=== PATIENT | male | born 1945 | race Caucasian/White ===

== ENCOUNTER 2019-07-21 08:12 | Emergency (ER) | payer MEDICARE ==
--- OUTSIDE RECORDS SUMMARY | 2019-07-21 08:19 | XMS REPORT | Summary of Care ---
:1945 Author Organization [facility] Address [address] [facility] [place] [address] Care Team Providers Name Role Phone Crescencio Lara Radha Primary Care Provider Reason for Visit Reason Comments Follow Up Right knee f/u. Patient states the injection worked great. Encounter Details Date Type Department Care Team Description 07/16/2019 Office Visit [facility] Francisco Nava, Primary osteoarthritis - [place] of right knee (Primary [address]) [place] [address] [place] [address] [phone] Allergies Active Allergy Reactions Severity Noted Date Comments No Known Allergies Other 06/25/2008 documented as of this encounter (statuses as of 07/19/2019) Medications Medication Sig Dispensed Refills Start Date End Date Status ibuprofen (ADVIL) 200 Take 800 mg by 0 Active MG Oral Tab mouth EVERY SIX HOURS NEEDED for Pain. Tadalafil 20 MG Oral Take 1 Tab by 12 Tab 5 07/26/2018 Active Tab mouth NEEDED (sex). documented as of this encounter (statuses as of 07/19/2019) Active Problems Problem Noted Date Erectile dysfunction due to arterial insufficiency 06/30/2017 Mixed hyperlipidemia 03/11/2016 Rotator cuff tear, right 07/18/2012 Tubular adenoma 11/13/2008 Overview: S/p polypectomy 2004, 2008 Osteoarthritis of knee 06/25/2008 Overview: S/p synvisc injection 2002-[facility]. documented as of this encounter (statuses as of 07/19/2019) Resolved Problems Problem Noted Date Resolved Date Shoulder pain 07/18/2012 07/25/2012 Overview: Right documented as of this encounter (statuses as of 07/19/2019) Immunizations Name Administration Dates Next Due Euflexxa (2ml) 11/07/2013 Euflexxa (4ml) 11/14/2013, 10/31/2013 Influenza (IM) Preservative Free 06/06/2012, 06/25/2008 PNEUMOCOCCAL POLYSACCHARIDE VACCINE 04/18/2012 Pneumococcal Conjugate(13 Valent) 03/11/2016 TDAP Vaccine 07/27/2015 ZOSTER (ZOSTAVAX) VACCINE 03/11/2016 documented as of this encounter Social History Tobacco Use Types Packs/Day Years Used Date Never Smoker Smokeless Tobacco: Never Used Alcohol Use Drinks/Week oz/Week Comments Yes 3-4 Glasses of wine 3.0 - 4.0 WINE DAILY Sex Assigned at Date Recorded Not on file Job Start Date Occupation Industry Not on file Not on file Not on file Travel History Travel Start Travel End No recent travel history available. documented as of this encounter Last Filed Vital Signs Vital Sign Reading Time Taken Comments Blood Pressure 129/76 07/16/2019 9:20 AM EDT Pulse 79 07/16/2019 9:20 AM EDT Temperature - - Respiratory Rate - - Oxygen Saturation - - Inhaled Oxygen Concentration - - Weight 83.9 kg (185 lb) 07/16/2019 9:20 AM EDT Height 177.8 cm (5' 10") 07/16/2019 9:20 AM EDT Body Mass Index 26.54 07/16/2019 9:20 AM EDT documented in this encounter Progress Notes Francisco Nava MD - 07/16/2019 9:15 AM EDT Name: Fadi Martinez : 1945 Date of Service: 07/16/2019 Chief Complaint Patient presents with Follow Up Right knee f/u. Patient states the injection worked great, however, it only worked two days. History of Present Illness: Fadi Martinez is a 73-y.o. male. The above is noted. Patient is in today for evaluation and follow-up of his right knee. Last seen in the office on 2018. At that time he had a Depo-Medrol injection performed previously on 2018. The patient has a diagnosis of degenerative joint disease involving his right knee. States that his knee is much less painful and is pleased with his pain relief at this time. Physical Examination: BP 129/76 | Pulse 79 | Ht 5' 10" (1.778 m) | Wt 185 lb (83.9 kg) | BMI 26.54 kg/m Developed well-nourished male in minimal discomfort at rest. Physical examination right knee: Reveals full extension, flexion 120 degrees. No varus valgus instability. Willem's test is negative at 25 to 30 degrees flexion. Neurovascularly he is intact. Patient walks with a minimally antalgic gait. Impression: DJD right knee Plan: Patient is doing well and the plan at this point is to follow-up on a as needed basis. All questions were answered. There are no Patient Instructions on file for this visit. Author: Francisco Nava MD 07/16/2019 09:46 documented in this encounter Plan of Treatment Health Maintenance Due Date Last Done Comments HIV SCREENING 1960 FALL RISK ASSESSMENT 2010 ZOSTER IMMUNIZATION SERIES 05/06/2016 03/11/2016 (2 of 3) MEDICARE ANNUAL WELLNESS 03/11/2017 03/11/2016, 03/11/2016 VISIT DEPRESSION SCREENING 04/13/2019 04/13/2018 COLONOSCOPY SCREENING 06/11/2019 06/11/2014, 01/12/2009, 12/17/2008 (Previously completed) LIPID DISORDER SCREENING 04/25/2022 04/25/2017, 03/15/2016, 05/08/2014, Additional history exists HEPATITIS C SCREENING Completed 05/08/2014 PNEUMOCOCCAL 65+YRS Completed 03/11/2016, 04/18/2012 HPV IMMUNIZATION SERIES Aged Out No longer eligible based on patient's age to complete this topic MENINGOCOCCAL VACCINE IMM Aged Out No longer eligible based on patient's age to complete this topic documented as of this encounter Implants Implanted Type Area Otr Flatbed Driver Device Shelf Model / Identifier Expiration Serial / Date Lot Pushlock 3.5mm - [id number] Right: ARTHREX [id number] / Implanted: Qty: 2 on 08/16/2012 at [facility] / [id number] [place] Rotator Cuff 5mm - [id number] Right: BIOMET [id number] / Implanted: Qty: 1 on 08/16/2012 at [facility] / [id number] [employer] Mini Quick [place] Plus - [id number] Right: Thumb DEPUY MTEK [id number] / Implanted: Qty: 1 on 06/29/2016 by Robert Cook MD at [facility] / [id number] [employer] Micro Quick [place] #4.0 - [id number] Right: Finger DEPUY MTEK [id number] / Implanted: Qty: 1 on 06/29/2016 by Robert Cook MD at [facility] / [id number] Description:Right 5th finger documented as of this encounter Results Not on filedocumented in this encounter Visit Diagnoses Diagnosis Primary osteoarthritis of right knee - Primary Primary localized osteoarthrosis, lower leg documented in this encounter Guarantor Name Account Type Relation to Date of Phone Billing Patient Address Fadi Martinez Personal/Family 1945 [phone] (Home) CHARLIE VANEGAS [phone] [id number] (Work) documented as of this encounter
[2019-07-21] MEDS ORDERED: Cephalexin CAP* 500 MG PO ONE (09:08)
--- NOTE | 2019-07-21 09:08 | UC ---
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 tetanus UTD he cleaned wound aggressively after injury no finger red /warm and swollen - History Of Current Complaint Chief Complaint: UCLaceration Stated Complaint: FINGER INJURY Time Seen by Provider: 07/21/19 09:01 Hx Obtained From: Patient Onset/Duration: Sudden Onset, Lasting Hours Severity Initially: Moderate Severity Currently: Mild Pain Intensity: 1 Pain Scale Used: 0-10 Numeric Character Of Pain: Dull, Aching Aggravating Factor(s): Movement Alleviating Factor(s): Rest Associated Signs And Symptoms: Positive: Swelling, Redness Related History: Dominant Hand Right Hands: 1 - 2 -3 mm long PW 2 - fusiform swelling and erthyema - Allergies/Home Medications Allergies/Adverse Reactions: Allergies Allergy/AdvReac Type Severity Reaction Status Date / Time No Known Allergies Allergy Verified 07/21/19 08:18 PMH/Surg Hx/FS Hx/Imm Hx Previously Healthy: Yes - Surgical History Surgical History: Yes Surgery Procedure, Year, and Place: R shoulder - rotator cuff repair. R 5th finger - Family History Known Family History: Positive: Hypertension, Non-Contributory - Social History Alcohol Use: None Substance Use Type: None Smoking Status (MU): Never Smoked Tobacco Review of Systems All Other Systems Reviewed And Are Negative: Yes Constitutional: Positive: Negative Skin: Positive: Negative Eyes: Positive: Negative ENT: Positive: Negative Respiratory: Positive: Negative Cardiovascular: Positive: Negative Gastrointestinal: Positive: Negative Genitourinary: Positive: Negative Motor: Positive: Negative Neurovascular: Positive: Negative Musculoskeletal: Positive: Negative, Other: - see HPI Neurological: Positive: Negative Psychological: Positive: Negative Physical Exam Triage Information Reviewed: Yes Appearance: Well-Appearing, No Pain Distress, Well-Nourished Vital Signs: Initial Vital Signs Temp 98.1 F 07/21/19 08:19 Pulse 74 07/21/19 08:19 Resp 18 07/21/19 08:19 BP 144/90 07/21/19 08:19 Pulse Ox 97 07/21/19 08:19 Vital Signs Reviewed: Yes Eyes: Positive: Conjunctiva Clear ENT: Positive: Hearing grossly normal. Negative: Nasal congestion, Nasal drainage, Trismus, Muffled voice, Hoarse voice Dental Exam: Normal Neck: Positive: Supple, Nontender, No Lymphadenopathy Respiratory: Positive: Lungs clear, Normal breath sounds, No respiratory distress, No accessory muscle use Cardiovascular: Positive: RRR, No Murmur Musculoskeletal: Positive: Other: - see image Neurological: Positive: Alert Psychological Exam: Normal Skin Exam: Normal Diagnostics - Radiology No standard instances Radiology Interpretation Completed By: Radiologist Summary of Radiographic Findings: no fx or FB Hand/Wrist Course/Dx - Differential Dx/Diagnosis Provider Diagnosis: Cellulitis of left index finger, Elevated BP without diagnosis of hypertension Discharge ED - Sign-Out/Discharge Documenting (check all that apply): Patient Departure All imaging exams completed and their final reports reviewed: Yes - Discharge Plan Condition: Stable Disposition: HOME Prescriptions: Cephalexin CAP* [Keflex CAP*] 500 mg PO QID #28 cap Patient Education Materials: Cellulitis (ED) Referrals: No Primary Care Phys,NOPCP [Primary Care Provider] - Additional Instructions: see your MD in 2-3 days for recheck return here for new or worsening symptoms - Billing Disposition and Condition Condition: STABLE Disposition: Home
[2019-07-21 10:44] VITALS: BP 126/81
== END 2019-07-21 10:45 | disposition home or self-care (01) ==
LOC: UCEAST 08:12
DX: L03.012 Cellulitis of left finger (principal); R03.0 Elevated blood-pressure reading, without diagnosis of hypertension
CPT/HCPCS: 73140; 99202; A9270-GY; G0463

== ENCOUNTER 2019-09-20 20:30 | Emergency (ER) | payer MEDICARE ==
--- OUTSIDE RECORDS SUMMARY | 2019-09-20 20:44 | XMS REPORT | Summary of Care ---
:1945 Author Organization [facility] Address [address] [facility] [place] [address] Care Team Providers Name Role Phone LabetteCrescencio Radha Primary Care Provider Reason for Visit Reason Comments Sick acid reflux, fatiuged, sensative to light Encounter Details Date Type Department Care Team Description 09/20/2019 Office Visit [facility], Diverticulitis (Primary Dx); Practice ROQUE Jara Left lower quadrant abdominal pain [address] [place] [address] [place] [address] [phone] Allergies Active Allergy Reactions Severity Noted Date Comments No Known Allergies Other 06/25/2008 documented as of this encounter (statuses as of 09/20/2019) Medications Medication Sig Dispensed Refills Start Date End Date Status ibuprofen (ADVIL) 200 MG Take 800 mg by 0 Active Oral Tab mouth EVERY SIX HOURS NEEDED for Pain. Tadalafil 20 MG Oral Tab Take 1 Tab by 12 Tab 5 07/26/2018 Active mouth NEEDED (sex). amoxicillin-clavulanic Take 1 Tab by 21 Tab 0 09/20/2019 Active acid (AUGMENTIN) 875-125 mouth THREE MG Oral TabIndications: TIMES DAILY. Diverticulitis documented as of this encounter (statuses as of 09/20/2019) Active Problems Problem Noted Date Erectile dysfunction due to arterial insufficiency 06/30/2017 Mixed hyperlipidemia 03/11/2016 Rotator cuff tear, right 07/18/2012 Tubular adenoma 11/13/2008 Overview: S/p polypectomy 2004, 2008 Osteoarthritis of knee 06/25/2008 Overview: S/p synvisc injection 2002-[facility]. documented as of this encounter (statuses as of 09/20/2019) Resolved Problems Problem Noted Date Resolved Date Shoulder pain 07/18/2012 07/25/2012 Overview: Right documented as of this encounter (statuses as of 09/20/2019) Immunizations Name Administration Dates Next Due Influenza (IM) Preservative Free 06/06/2012, 06/25/2008 PNEUMOCOCCAL [...] Sign Reading Time Taken Comments Blood Pressure 122/68 09/20/2019 1:29 PM EST Pulse 79 09/20/2019 1:29 PM EST Temperature 36.7 09/20/2019 1:29 PM EST C (98 F) Respiratory Rate - - Oxygen Saturation 98% 09/20/2019 1:29 PM EST Inhaled Oxygen Concentration - - Weight 88 kg (194 lb) 09/20/2019 1:29 PM EST Height 177.8 cm (5' 10") 09/20/2019 1:29 PM EST Body Mass Index 27.84 09/20/2019 1:29 PM EST documented in this encounter Patient Instructions Patient InstructionsEstefani Livingston NP - 09/20/2019 1:20 PM ESTAugmentin - one tablet every 8 hours for 7 days. Diet as tolerated - for reflux consider decreased alcohol, no peppermint, less caffeine, no spicy foods and loose clothing. Remain upright for 2-3 hours after meals. Please return if worsening pain or no improvement. Patient Education Diverticulitis The Basics Written by the doctors and editors at [facility] What is diverticulitis?Diverticulitis is a disorder that can cause belly pain, fever, and problems with bowel movements. The food we eat travels from the stomach through a long tube called the intestine. The last part of that tube is the colon (figure 1). The colon sometimes has small pouches in its chowdary. These pouches are called "diverticula. " Many people who have these pouches have no symptoms. Diverticulitis happenswhen these pouches develop a small tear also known as a "microperforation ," which then become infected and cause symptoms. What are the symptoms of diverticulitis?The most common symptom of diverticulitis is pain, which is usually in the lower part of the belly. Other symptoms can include: Fever Constipation Diarrhea Nausea and vomiting Is there a test for diverticulitis?Yes. There are a few tests your doctor can do to find out if you have diverticulitis. But tests are not always needed. If you do have a test, you might have a: CT scan A CT scan is a kind of imaging test. Imaging tests create pictures of the insideof your body. Abdominal ultrasound This test uses sound waves to create pictures of your intestines. How is diverticulitis treated?That depends on how bad your symptoms are. If you have mild symptoms, you will get antibiotics. You might also need to go on a clear liquid diet for a short time. That might be all the treatment you need. But if you have severe symptoms, or if you get a fever, you might need to stay in the hospital. There, you can get fluids and antibiotics through a thin tube that goes into your vein, called an "IV." That way you can stop eating and drinking until you get better. If you have a serious infection, the doctor might put a tube into your belly to drain the infection.In very bad cases, people need surgery to remove the part of the colon that is affected. A few months after your infection has been treated, your doctor might recommend that you have a procedure called a colonoscopy (figure 2). During a colonoscopy , the doctor can look directly inside yourcolon to get an idea of the number of diverticula in your colon and to find out where they are. At the same time, he or she can check for signs of cancer. Should I change my diet if I have had diverticulitis?If you have had diverticulitis, it's a good idea to eat a lot of fiber. Good sources of fiber include fruits, oats, beans, peas, and green leafy vegetables. If you do not already eat fiber-rich foods, wait until after your symptoms getbetter to start. You do not need to avoid seeds, nuts, popcorn, or other similar foods. All topics are updated as new evidence becomes available and our peer review process is complete. This topic retrieved from [employer] on: Jul 23, 2019. Topic 46410 Version 9.0 Release: 27.4.5 - C27.318 [employer]. and/or its affiliates.All rights reserved. figure 1: Digestive system This drawing shows the organs in the body that process food. Together these organs are called "the digestive system," or "digestive tract." As food travels through this system, the body absorbs nutrients and water. Graphic 36433 Version 4.0 figure 2: Colonoscopy During a colonoscopy, you lie on your side and the doctor or nurse puts a thin tube with a camera into your anus (from behind). Then the doctor or nurse advances the tube into the rectum and colon. Thecamera sends pictures from inside your colon to a television screen. Graphic 94708 Version 5.0 Consumer Information Use and Disclaimer This information is not specific medical advice and does not replace information you receive from your health care provider. This is only a brief summary of general information. It does NOT include allinformation about conditions, illnesses, injuries, tests, procedures, treatments, therapies, discharge instructions or life-style choices that may apply to you. You must talk with your health care provider for complete information about your health and treatment options. This information should not beused to decide whether or not to accept your health care provider's advice, instructions or recommendations. Only your health care provider has the knowledge and training to provide advice that is right for you.The use of [employer] content is governed by the [employer] Terms of Use. 2019 [employer]. All rights reserved. Copyright 2019[employer]. and/or its affiliates.All rights reserved. documented in this encounter Progress Notes Estefani Livingston NP - 09/20/2019 1:20 PM EST PATIENT: Fadi Martinez : 1945 DATE OF SERVICE: 09/20/2019 CHIEF COMPLAINT: Chief Complaint Patient presents with Sick acid reflux, fatiuged, sensative to light Subjective HISTORY OF PRESENT ILLNESS: Fadi Martinez is a 73-y.o. male. HPI Fever (not actually checked), body aches, chills since yesterday. No cough. Photosensitivity and headache. Took advil which helped for a bit. Sinuses ok, no congestion. No sore throat. Sudden onset of illness. [place] good yesterday morning and then by midday felt sick. No sick contacts. Went to a [employer] party - maybe sick people there. No flu vaccine. Last dose of advil was 10am. Urination normal. Yesterday and today - gets pressure like needs to have a BM but little will come out -Normal consistency but not very much. But also not eating much in the last few days. Acid reflux for a few days - Burning in throat. Chewing mint gum makes it go away. No other treatments tried. Worse after eating. History reviewed. No pertinent past medical history. Family History Problem Relation Age of Onset Cancer Mother colon ca age late 60's COPD Father No Known Problems Daughter No Known Problems Son No Known Problems Daughter No Known Problems Sister No Known Problems Brother Current Outpatient Medications Medication Sig amoxicillin-clavulanic acid (AUGMENTIN) 875-125 MG Oral Tab Take 1 Tab by mouth THREE TIMES DAILY. ibuprofen (ADVIL) 200 MG Oral Tab Take 800 mg by mouth EVERY SIX HOURS NEEDED for Pain. Tadalafil 20 MG Oral Tab Take 1 Tab by mouth NEEDED (sex). No current facility-administered medications for this visit. Allergies Allergen Reactions Nka [No Known Allergies] Other Social History Socioeconomic History Marital status: Spouse name: Not on file Number of children: Not on file Years of education: Not on file Highest education level: Not on file Occupational History Not on file Social Needs Financial resource strain: Not on file Food insecurity Worry: Not on file Inability: Not on file Transportation needs Medical: Not on file Non-medical: Not on file Tobacco Use Smoking status: Never Smoker Smokeless tobacco: Never Used Substance and Sexual Activity Alcohol use: Yes Alcohol/week: 3.0 - 4.0 standard drinks Types: 3 - 4 Glasses of wine per week Comment: WINE DAILY Drug use: No Sexual activity: Not on file Lifestyle Physical activity Days per week: Not on file Minutes per session: Not on file Stress: Not on file Relationships Social connections Talks on phone: Not on file Gets together: Not on file Attends bahai service: Not on file Active member of club or organization: Not on file Attends meetings of clubs or organizations: Not on file Relationship status: Not on file Intimate partner violence Fear of current or ex partner: Not on file Emotionally abused: Not on file Physically abused: Not on file Forced sexual activity: Not on file Other Topics Concern Back Care Not Asked Bike Helmet Not Asked Blood Transfusions Not Asked Caffeine Concern Not Asked Exercise Yes Comment: housework/mowing, ellipitical workout 4 days/week Hobby Hazards Not Asked International Travel Not Asked Service Not Asked Occupational Exposure Not Asked Seat Belt Not Asked Self-Exams Not Asked Sleep Concern No Special Diet Yes Comment: low fat and carbos Stress Concern No Weight Concern Yes Comment: wants to lose 15 lbs Social History Narrative Lives in [facility] [place] at [employer] [place]. Over the last 2 weeks, have you been feeling down, depressed, anxious, or hopeless?: 0 Over the past 2 weeks, have you felt little interest or pleasure in doing things ?: 0 REVIEW OF SYSTEMS: Review of Systems Constitutional: Positive for chills and malaise/fatigue. Negative for fever. HENT: Negative for congestion, ear discharge, ear pain, sinus pain and sore throat. Eyes: Positive for photophobia. Respiratory: Negative for cough and shortness of breath. Cardiovascular: Negative for chest pain and palpitations. Gastrointestinal: Positive for abdominal pain (lower abd bilat). Negative for blood in stool, constipation, diarrhea, nausea and vomiting. Genitourinary: Positive for flank pain. Negative for dysuria, frequency, hematuria and urgency. Musculoskeletal: Positive for back pain. Negative for myalgias and neck pain. Body aches Neurological: Positive for headaches. Negative for dizziness, tingling and sensory change. Objective PHYSICAL EXAM: VITALS: BP 122/68 (BP Location: Left arm, Patient Position: Sitting) | Pulse 79 | Temp 98 F (36.7 C) (Tympanic) | Ht 5' 10" (1.778 m) | Wt 194 lb (88 kg) | SpO2 98% | BMI 27.84 kg/mBody mass index is 27.84 kg/m. Physical Exam Vitals signs and nursing note reviewed. Constitutional: General: He is not in acute distress. Appearance: Normal appearance. He is well-developed. He is not ill-appearing. Cardiovascular: Rate and Rhythm: Normal rate and regular rhythm. Heart sounds: Normal heart sounds. No murmur. No friction rub. No gallop. Pulmonary: Effort: Pulmonary effort is normal. No respiratory distress. Breath sounds: Normal breath sounds. Abdominal: General: Abdomen is flat. Bowel sounds are normal. There is no distension. Palpations: Abdomen is soft. Abdomen is not rigid. There is no hepatomegaly, splenomegaly or mass. Tenderness: There is abdominal tenderness in the left lower quadrant. There is no right CVA tenderness, left CVA tenderness, guarding or rebound. Negative signs include Sears's sign and McBurney's sign. Hernia: No hernia is present. Lymphadenopathy: Head: Right side of head: No submental, submandibular, tonsillar, preauricular or posterior auricular adenopathy. Left side of head: No submental, submandibular, tonsillar, preauricular or posterior auricular adenopathy. Cervical: No cervical adenopathy. Upper Body: Right upper body: No supraclavicular adenopathy. Left upper body: No supraclavicular adenopathy. Neurological: General: No focal deficit present. Mental Status: He is alert. Psychiatric: Behavior: Behavior is cooperative. Results for orders placed or performed in visit on 09/20/19 URINE DIP MANUAL (AMB POCT) Result Value Ref Range URINE GLUCOSE (POCT) Negative Negative mg/dl URINE BILIRUBIN (POCT) Negative Negative Urine Ketones (POCT) Negative Negative URINE SPECIFIC GRAVITY (POCT) 1.025 1.005 - 1.030 URINE BLOOD (POCT) Trace-Lysed (A) Negative URINE PH (POCT) 5.0 5.0 - 8.0 URINE PROTEIN (POCT) Negative Negative mg/dl URINE UROBILINOGEN (POCT) 0.2 0.2 - 1.0 mg/dl URINE NITRITES (POCT) Negative Negative URINE LEUKOCYTES (POCT) Negative Negative Cells/uL ASSESSMENT / IMPRESSION: ICD-9-CM ICD-10-CM 1. Diverticulitis 562.11 K57.92 amoxicillin-clavulanic acid (AUGMENTIN) 875-125 MG Oral Tab 2. Left lower quadrant abdominal pain 789.04 R10.32 URINE DIP MANUAL (AMB POCT) Plan 1. Diverticulitis Augmentin - one tablet every 8 hours for 7 days. Diet as tolerated - for reflux consider decreased alcohol, no peppermint, less caffeine, no spicy foods and loose clothing. Remain upright for 2-3 hours after meals. Please return if worsening pain or no improvement. - amoxicillin-clavulanic acid (AUGMENTIN) 875-125 MG Oral Tab; Take 1 Tab by mouth THREE TIMES DAILY. Dispense: 21 Tab; Refill: 0 2. Left lower quadrant abdominal pain Urine dip negative. - URINE DIP MANUAL (AMB POCT) Author: Estefani Livingston NP 09/20/2019 17:34 documented in this encounter Plan of Treatment Health Maintenance Due Date Last Done Comments HIV SCREENING 1960 FALL RISK ASSESSMENT 2010 ZOSTER IMMUNIZATION SERIES 05/06/2016 03/11/2016 (2 of 3) MEDICARE ANNUAL WELLNESS 03/11/2017 03/11/2016, 03/11/2016 VISIT Colonoscopy 06/11/2019 06/11/2014, 01/12/2009, 12/17/2008 (Previously completed) DEPRESSION SCREENING 09/20/2020 09/20/2019 LIPID DISORDER SCREENING 04/25/2022 04/25/2017, 03/15/2016, 05/08/2014, Additional history exists DTaP/Tdap/Td Vaccines (2 - 07/27/2025 07/27/2015 Tdap) HEPATITIS C SCREENING Completed 05/08/2014 PNEUMOCOCCAL 65+YRS Completed 03/11/2016, 04/18/2012 HEPATITIS A IMMUNIZATION Aged Out No longer eligible SERIES based on patient's age to complete this topic HPV IMMUNIZATION SERIES Aged Out No longer eligible based on patient's age to complete this topic MENINGOCOCCAL VACCINE IMM Aged Out No longer eligible based on patient's age to complete this topic documented as of this encounter Implants Implanted Type Area Form Setter Steel Pan Forms Device Shelf Model / Identifier Expiration Serial / Date Lot Pushlock 3.5mm - [id number] Right: ARTHREX [id number] / Implanted: Qty: 2 on 08/16/2012 at [facility]er / [id number] Holbrook Rotator Cuff 5mm - [id number] Right: BIOMET [id number] / Implanted: Qty: 1 on 08/16/2012 at [facility] Shoulder / [id number] Mitek Mini Quick Holbrook Plus - [id number] Right: Thumb DEPUY MTEK [id number] / Implanted: Qty: 1 on 06/29/2016 by Robert Cook MD at [facility] / [id number] Mitek Micro Quick Holbrook #4.0 - [id number] Right: Finger DEPUY MTEK [id number] / Implanted: Qty: 1 on 06/29/2016 by Robert Cook MD at [facility] / [id number] Description:Right 5th finger documented as of this encounter Procedures Procedure Name Priority Date/Time Associated Diagnosis Comments URINE DIP MANUAL Routine 09/20/2019 2:18 PM Left lower quadrant Results for this (AMB POCT) EST abdominal pain procedure are in the results section. documented in this encounter Results URINE DIP MANUAL (AMB POCT) (09/20/2019 2:18 PM EST) URINE GLUCOSE (POCT) Negative Negative mg/dl [facility] POCT URINE BILIRUBIN Negative Negative [facility] (POCT) [place] POCT Urine Ketones (POCT) Negative Negative [facility] POCT URINE SPECIFIC 1.025 1.005 - 1.030 [facility] GRAVITY (POCT) [place] POCT URINE BLOOD (POCT) Trace-Lysed (A) Negative [facility] POCT URINE PH (POCT) 5.0 5.0 - 8.0 [facility] POCT URINE PROTEIN (POCT) Negative Negative mg/dl [facility] POCT URINE UROBILINOGEN 0.2 0.2 - 1.0 mg/dl [facility] (POCT) [place] POCT URINE NITRITES Negative Negative [facility] (POCT) [place] POCT URINE LEUKOCYTES Negative Negative [facility] (POCT) Cells/uL [place] POCT Specimen Urine - Urine specimen (specimen) Performing Organization Address City/State/Zipcode Phone Number MAR[facility]A STR[facility] [place] [address] [place] [address] documented in this encounter Visit Diagnoses Diagnosis Diverticulitis Diverticulitis of colon (without mention of hemorrhage) Left lower quadrant abdominal pain documented in this encounter Guarantor Name Account Type Relation to Date of Phone Billing Patient Address Fadi Martinez Personal/Family 1945 [phone] [id number] (Home) CHARLIE VANEGAS [phone] (Work) documented as of this encounter
[2019-09-20] MEDS ORDERED: Pantoprazole IV* 40 MG IV ONE (21:58)
[2019-09-20] MEDS ORDERED: Ondansetron INJ* 2 MG/ML VIAL IV ONE (21:58)
[2019-09-20] MEDS ORDERED: NS 0.9% 1000 ML** 1,000 ML IV ONE (21:58)
[2019-09-20 22:16] LABS: ABS Eosinophils 0.1 10^3/ul (0-0.6); ABS Lymphocytes 0.4 10^3/ul (1.0-4.8); ABS Monocytes 0.7 10^3/ul (0-0.8); ABS Neutrophils 9.9 10^3/ul (1.5-7.7); Eosinophil % 1.1 %; Hematocrit 42 % (42-52); Hemoglobin 14.9 g/dL (14.0-18.0); Lymphocyte % 3.4 %; Mean Corpuscular HGB Conc 36 g/dL (31-36); Mean Corpuscular Hemoglobin 32 pg (27-31); Mean Corpuscular Volume 90 fL (80-94); Mean Platelet Volume 8.4 fL (7.4-10.4); Platelet Count 154 10^3/uL (150-450); Red Blood Count 4.66 10^6 /uL (4.18-5.48); Red Cell Distribution Width 13 % (10-15); White Blood Count 11.2 10^3/uL (3.5-10.8)
[2019-09-20 22:26] LABS: INR 1.03 (0.82-1.09)
--- NOTE | 2019-09-20 22:26 | ED ---
GI/ HPI - HPI Summary HPI Summary: This patient is a 73 year old male presenting to [facility] with a chief complaint of nausea and vomiting since 4 hours ago. He denies CP, SOB, cough. He reports sore throat that started now. He states LLQ pain on palpation. He was seen at [facility] and diverticulitis was suspected but a scan was not done. He states he had chills earlier today. Patient was prescribed augmentin for diverticulitis and has taken one dose so far. - History of Current Complaint Chief Complaint: EDAbdPain Time Seen by Provider: 09/20/19 21:58 Stated Complaint: VOMITING/CHILLS PER PT Hx Obtained From: Patient Onset/Duration: Started Hours Ago Pain Intensity: 0 Location of Pain: LLQ - Allergy/Home Medications Allergies/Adverse Reactions: Allergies Allergy/AdvReac Type Severity Reaction Status Date / Time No Known Allergies Allergy Verified 09/20/19 20:32 Home Medications: Home Medications Amoxicillin/Clavulanate TAB* [Augmentin TAB 875*] 875 mg PO TID 09/20/19 [ History Confirmed 09/20/19] PMH/Surg Hx/FS Hx/Imm Hx Endocrine/Hematology History: Denies: Hx Thyroid Disease Cardiovascular History: Denies: Hx Cardiac Arrest Respiratory History: Denies: Hx Pleural Effusion Sensory History: Denies: Hx Cataracts - Surgical History Surgery Procedure, Year, and Place: R shoulder - rotator cuff repair. R 5th finger - Immunization History Date of Tetanus Vaccine: utd Infectious Disease History: No Infectious Disease History: Denies: Traveled Outside the [place] in Last 30 Days - Family History Known Family History: Positive: Hypertension - Social History Alcohol Use: Rare Substance Use Type: Reports: None Smoking Status (MU): Never Smoked Tobacco Review of Systems Positive: Chills Negative: Chest Pain Negative: Shortness Of Breath, Cough Positive: Abdominal Pain, Vomiting, Nausea All Other Systems Reviewed And Are Negative: Yes Physical Exam - Summary Physical Exam Summary: General: Well-developed, Well-nourished MALE. No acute distress. HEENT: Normocephalic, Atraumatic. Eyes: Conjuctiva normal, PERRL. Oropharynx: Clear, mucous membranes moist, (-) exudates. Neck: Soft, FROM, (-) lymphadenopathy, (-) thyromegaly, (-) JVD. Cardiovascular: Normal sinus rhythm, (-) murmur. Lungs: Clear to auscultation bilaterally (-) wheezes, (-) rales, (-) rhonchi. Abdomen: Soft, non-tender, non-distended, (-) organomegaly, normal bowel sounds. Back: (-) CVA tenderness Extremities: No edema. Skin: Warm, dry, (-) rash. Neuro: Alert and oriented x3, no focal deficits. Psychiatric: Mood normal, affect normal. Triage Information Reviewed: Yes Vital Signs On Initial Exam: Initial Vitals Temp Pulse Resp BP Pulse Ox 97.8 F 97 18 118/88 98 09/20/19 20:32 09/20/19 20:32 09/20/19 20:32 09/20/19 20:32 09/20/19 20:32 Vital Signs Reviewed: Yes Procedures - Sedation Patient Received Moderate/Deep Sedation with Procedure: No Diagnostics - Vital Signs Vital Signs Temp Pulse Resp BP Pulse Ox 09/20/19 22:00 87 14 94 09/20/19 21:51 91 17 134/80 97 09/20/19 21:49 13 09/20/19 20:32 97.8 F 97 18 118/88 98 - Laboratory Lab Results: Lab Results 09/20/19 Range/Units 22:08 WBC 11.2 H (3.5-10.8) 10^3/uL RBC 4.66 (4.18-5.48) 10^6 /uL Hgb 14.9 (14.0-18.0) g/dL Hct 42 (42-52) % MCV 90 (80-94) fL MCH 32 H (27-31) pg MCHC 36 (31-36) g/dL RDW 13 (10-15) % Plt Count 154 (150-450) 10^3/uL MPV 8.4 (7.4-10.4) fL Neut % (Auto) 88.7 % Lymph % (Auto) 3.4 % [place] % (Auto) 6.5 % Eos % (Auto) 1.1 % Baso % (Auto) 0.3 % Absolute Neuts (auto) 9.9 H (1.5-7.7) 10^3/ul Absolute Lymphs (auto) 0.4 L (1.0-4.8) 10^3/ul Absolute Monos (auto) 0.7 (0-0.8) 10^3/ul Absolute Eos (auto) 0.1 (0-0.6) 10^3/ul Absolute Basos (auto) 0.0 (0-0.2) 10^3/ul Absolute Nucleated RBC 0.0 10^3/ul Nucleated RBC % 0.0 Result Diagrams: 09/20/19 22:08 09/20/19 22:08 Lab Statement: Any lab studies that have been ordered have been reviewed, and results considered in the medical decision making process. - CT Abd/Pel CT Interpretation Completed By: Radiologist Summary of CT Findings: There is a focal subplerual opacity in the right lower lobe suspicious for atelectasis or patchy pneumonitis but cannot exclude indeterminate subpleural pulmonary nodule measuring 1.7 cm. For both low risk and high risk patients, cosnider CT at 3 months, OET/CT, or biopsy. 2. No other acute CT Pathology. GIGU Course/Dx - Course Course Of Treatment: 73 year old male presents with vomiting. he state she had chills earlier today, nausea. felt poorly. went to pcp office and pcp said he had tenderness to palpation in llq so treated his presumed diverticulitis with augmentin. sridevi had one dose of augmentin at home tonight and then had persistent vomiting. upon arrival, he was not ill appearing. essentially normal exam. labs showed elevated wbc. ct abd pelvis showed no acute process. lung nodule found incidentally, discussed with patient. discharged to home. d/s augmentin. follow up with pcp. follow up sooner for any worsening symptoms. - Diagnoses Provider Diagnoses: Viral syndrome, Lung nodule Discharge ED - Sign-Out/Discharge Documenting (check all that apply): Patient Departure - Discharge - Discharge Plan Condition: Stable Disposition: HOME Patient Education Materials: Pulmonary Nodules (ED) Referrals: Crescencio Lara MD [Primary Care Provider] - Additional Instructions: Return to ED with new or worsening symptoms. - Billing Disposition and Condition Condition: STABLE Disposition: Home - Attestation Statements Document Initiated by Scribe: Yes Documenting Scribe: Yang Joshua Provider For Whom Scribe is Documenting (Include Credential): Jennifer Lucero MD Scribe Attestation: Yang Martinez, scribed for Jennifer Lucero MD on 09/21/19 at 0623. Scribe Documentation Reviewed: Yes Provider Attestation: The documentation as recorded by the scribe, Yang Joshua accurately reflects the service I personally performed and the decisions made by me, Jennifer Lucero MD Status of Scribe Document: Viewed
[2019-09-20 22:37] LABS: ALT 21 U/L (7-52); AST 18 U/L (13-39); Albumin 4.1 g/dL (3.2-5.2); Albumin/Globulin Ratio 1.4 (1-3); Alkaline Phosphatase 69 U/L (34-104); Amylase 22 U/L (29-103); Anion Gap 7 mmol/L (2-11); BUN/Creatinine Ratio 26.7 (8-20); Blood Urea Nitrogen 24 mg/dL (6-24); C Reactive Protein 7.58 mg/L (<8.01); CO2 Carbon Dioxide 26 mmol/L (22-32); Calcium 9.3 mg/dL (8.6-10.3); Chloride 103 mmol/L (101-111); EGFR African American 100.1 (>60); EGFR Non-African American 82.7 (>60); Glucose 128 mg/dL (70-100); Potassium 4.1 mmol/L (3.5-5.0); Sodium 136 mmol/L (135-145); Total Protein 7.1 g/dL (6.4-8.9)
[2019-09-20] MEDS ORDERED: Iohexol 300* (CONTRAST) 10 ML SDV IV ONE (23:28)
[2019-09-21 00:59] LABS: Urine Appearance Clear; Urine Bilirubin Negative (Negative); Urine Blood Negative (Negative); Urine Color Yellow; Urine Glucose Negative (Negative); Urine Ketones 1+ (Negative); Urine Nitrite Negative (Negative); Urine Protein Negative (Negative); Urine Specific Gravity 1.054 (1.010-1.030); Urine Urobilinogen Negative (Negative)
[2019-09-21 01:22] VITALS: BP 126/79
== END 2019-09-21 01:10 | disposition home or self-care (01) ==
LOC: ED 20:30
DX: B34.9 Viral infection, unspecified (principal); R91.1 Solitary pulmonary nodule; R10.9 Unspecified abdominal pain; R11.2 Nausea with vomiting, unspecified
CPT/HCPCS: 36415; 74177; 80053; 81003; 82150; 83605; 83690; 85025; 85610; 86140; 96361; 96374; 96375; 99284; J2405; Q9967